=== PATIENT | male | born 1985 | race Caucasian/White ===

== ENCOUNTER 2017-02-23 09:28 | Observation (INO) | payer BC ==
[2017-02-23] MEDS ORDERED: Sodium Chloride 0.9% 1,000 ML IV ONE (09:51)
[2017-02-23] MEDS ORDERED: Ondansetron 4 MG/2 ML SDV IVPUSH ONE (09:51)
[2017-02-23 10:11] LABS: CHLORIDE,CL 96 mmol/L (98-115); SODIUM,NA 135 mmol/L (136-145)
[2017-02-23] MEDS ORDERED: Albuterol/Ipratropium 3.0-0.5 MG/3 ML Neb Soln NEB ONE (10:20)
--- NOTE | 2017-02-23 10:20 | EDM.PDOC ---
ED HPI GENERAL MEDICAL PROBLEM - General Chief Complaint: General Stated Complaint: vomiting Time Seen by Provider: 02/23/17 10:13 Source of Information: Reports: Patient History Limitations: Reports: No Limitations - History of Present Illness INITIAL COMMENTS - FREE TEXT/NARRATIVE: 31 YO WM presents to ER with 3 day history of productive cough, shortness of breath, subjective fever, body aches and dizziness. Pt reports he developed nausea/vomiting and profuse diarrhea over the last 3 days but symptoms started with URI like symptoms. Pt with PMH of depression/anxiety. Pt denies any history of pneumonia/bronchitis or asthma. Onset Date: 02/18/17 Duration: Day(s): (4) Location: Reports: Generalized Severity: Mild Improves with: Reports: Rest Worsens with: Reports: Movement Associated Symptoms: Reports: cough w sputum, Fever/Chills, Headaches, Loss of Appetite, Malaise, Nausea/Vomiting, Shortness of Breath, Weakness. Denies: Chest Pain, Diaphoresis, Rash, Seizure, Syncope Treatments [employer]: Reports: Acetaminophen - Related Data Allergies Allergy/AdvReac Type Severity Reaction Status Date / Time No Known Drug Allergies Allergy Cannot Verified 02/23/17 09:49 Remember Home Meds: Home Meds ALPRAZolam [Alprazolam] 0.5 mg PO TID PRN 04/04/16 [History] PARoxetine HCl [Paroxetine HCl] 20 mg PO DAILY 04/04/16 [History] Social & Family History - Family History Cardiac: Reports: Hypertension Oncologic: Reports: Bone, Brain, Renal - Tobacco Use Smoking Status *Q: Never Smoker Second Hand Smoke Exposure: Yes - Caffeine Use Caffeine Use: Reports: Soda - Alcohol Use Days Per Week of Alcohol Use: 5 Number of Drinks Per Day: 3 Total Drinks Per Week: 15 - Recreational Drug Use Recreational Drug Use: No ED ROS GENERAL - Review of Systems Review Of Systems: See Below Constitutional: Reports: Fever, Chills, Malaise, Weakness HEENT: Reports: Rhinitis Respiratory: Reports: Shortness of Breath, Wheezing, Cough, Sputum. Denies: Hemoptysis Cardiovascular: Reports: No Symptoms, Lightheadedness Endocrine: Reports: No Symptoms GI/Abdominal: Reports: No Symptoms : Reports: No Symptoms Musculoskeletal: Reports: No Symptoms Skin: Reports: No Symptoms Neurological: Reports: No Symptoms Psychiatric: Reports: No Symptoms Hematologic/Lymphatic: Reports: No Symptoms Immunologic: Reports: No Symptoms ED EXAM, GENERAL - Physical Exam Exam: See Below Exam Limited By: No Limitations General Appearance: Alert, WD/WN, No Apparent Distress Nose: Nasal Drainage, Clear Rhinorrhea Throat/Mouth: Normal Inspection, Normal Lips, Normal Teeth, Normal Gums, Normal Oropharynx, Normal Voice, No Airway Compromise Head: Atraumatic, Normocephalic Neck: Normal Inspection, Supple, Non-Tender, Full Range of Motion Respiratory/Chest: No Respiratory Distress, No Accessory Muscle Use, Chest Non- Tender, Wheezing Cardiovascular: Normal Peripheral Pulses, Regular Rate, Rhythm, No Edema, No Gallop, No JVD, No Murmur, No Rub GI/Abdominal: Normal Bowel Sounds, Soft, Non-Tender, No Organomegaly, No Distention, No Abnormal Bruit, No Mass Back Exam: Normal Inspection, Full Range of Motion, NT Extremities: Normal Inspection, Normal Range of Motion, Non-Tender, Normal Capillary Refill, No Pedal Edema Neurological: Alert, Oriented, CN II-XII Intact, Normal Cognition, Normal Gait, Normal Reflexes, No Motor/Sensory Deficits Psychiatric: Normal Affect, Normal Mood Skin Exam: Warm, Dry, Intact, Normal Color, No Rash Lymphatic: No Adenopathy EKG INTERPRETATION EKG Date: 02/23/17 Time: 10:42 Rhythm: NSR Rate (Beats/Min): 92 [place]: Normal P-Wave: Present QRS: Normal ST-T: Normal QT: Normal Comparison: NA - No Prior EKG Course - Vital Signs Last Recorded V/S: Last Vital Signs Temp 37.3 C 02/23/17 09:40 Pulse 106 H 02/23/17 10:45 Resp 13 02/23/17 10:45 BP 117/71 02/23/17 10:45 Pulse Ox 92 L 02/23/17 10:45 - Orders/Labs/Meds Orders: Active Orders 24 hr Category Date Time Status EKG Documentation Completion [RC] ASDIRECTED Care 02/23/17 10:33 Active RT Aerosol Therapy [RC] ASDIRECTED Care 02/23/17 10:21 Active Chest 2V [CR] Stat Exams 02/23/17 10:19 Taken EKG 12 Lead [EK] Routine Ther 02/23/17 10:33 Ordered Labs: Laboratory Tests 02/23/17 02/23/17 02/23/17 Range/Units 09:40 09:40 09:40 WBC 3.9 L (5.0-10.0) 10^3/uL RBC 5.29 (4.50-6.00) 10^6/uL Hgb 15.6 (13.0-17.0) g/dL Hct 47.3 (40.0-52.0) % MCV 89.4 (82.0-92.0) fL MCH 29.5 (27.0-31.0) pg MCHC 33.0 (32.0-36.0) g/dL RDW 11.6 (11.5-14.5) % Plt Count 149 L (150-300) 10^3/uL MPV 8.7 (7.4-10.4) fL Neut % (Auto) 48.6 L (50.0-70.0) % Lymph % (Auto) 36.9 (20.0-40.0) % [place] % (Auto) 13.2 H (2.0-8.0) % Eos % (Auto) 0.1 L (1.0-3.0) % Baso % (Auto) 1.2 H (0.0-1.0) % Neut # (Auto) 2.0 L (2.5-7.0) 10^3/uL Lymph # (Auto) 1.4 (1.0-4.0) 10^3/uL [place] # (Auto) 0.5 (0.1-0.8) 10^3/uL Eos # (Auto) 0.0 L (0.1-0.3) 10^3/uL Baso # (Auto) 0.0 (0.0-0.1) 10^3/uL Sodium 135 L (136-145) mmol/L Potassium 2.9 L (3.3-5.3) mmol/L Chloride 96 L (98-115) mmol/L Carbon Dioxide 25.1 (21.0-32.0) mmol/L BUN 11 (6-25) mg/dL Creatinine 0.95 (0.51-1.17) mg/dL Est Cr Clr Drug Dosing 105.33 mL/min Estimated GFR (MDRD) > 60 mL/min Glucose 105 (70-110) mg/dL Calcium 8.4 L (8.7-10.3) mg/dL Total Bilirubin 0.5 (0.2-1.0) mg/dL Direct Bilirubin 0.1 (0.0-0.2) mg/dL AST 32 (15-37) U/L ALT 41 (12-78) U/L Alkaline Phosphatase 61 (46-116) IU/L Total Protein 7.6 (6.4-8.2) g/dL Albumin 3.75 (3.00-4.80) g/dL Lipase 122 (73-393) U/L Meds: Medications Discontinued Medications Generic Name Dose Route Start Last Admin Trade Name Freq PRN Reason Stop Dose Admin Albuterol/Ipratropium 3 ml 02/23/17 10:20 02/23/17 10:35 Duoneb 3.0-0.5 Mg/3 Ml NEB 02/23/17 10:21 3 ml ONETIME ONE Administration Sodium Chloride 1,000 mls @ 999 mls/hr 02/23/17 09:51 02/23/17 09:45 Normal Saline IV 02/23/17 10:51 999 mls/hr .BOLUS ONE Administration Ondansetron HCl 4 mg 02/23/17 09:51 02/23/17 09:56 Zofran IVPUSH 02/23/17 09:52 4 mg ONETIME ONE Administration - Radiology Interpretation Free Text/Narrative:: CXR- NAD Departure - Departure Time of Disposition: 11:16 Disposition: Refer to Observation Condition: Good Clinical Impression: Hypokalemia, Hyponatremia, Dehydration Upper respiratory infection Qualifiers: URI type: unspecified viral URI Qualified Code(s): J06.9 - Acute upper respiratory infection, unspecified; B97.89 - Other viral agents as the cause of diseases classified elsewhere; B97.89 - Other viral agents as the cause of diseases classified elsewhere - Discharge Information Referrals: PCP,None [Primary Care Provider] - Forms: ED Department Discharge - My Orders Last 24 Hours: My Active Orders 02/23/17 10:19 Chest 2V [CR] Stat 02/23/17 10:21 RT Aerosol Therapy [RC] ASDIRECTED 02/23/17 10:33 EKG Documentation Completion [RC] ASDIRECTED EKG 12 Lead [EK] Routine - Assessment/Plan Last 24 Hours: My Active Orders 02/23/17 10:19 Chest 2V [CR] Stat 02/23/17 10:21 RT Aerosol Therapy [RC] ASDIRECTED 02/23/17 10:33 EKG Documentation Completion [RC] ASDIRECTED EKG 12 Lead [EK] Routine Assessment:: 1. dehydration 2. hypokalemia 3. hyponatremia 4. bronchospasm Plan: 1. fluid hydration 2. zofran for vomiting 3. replace potassium 4. duoneb tx Q4 5. supportive care 6. 23 hour obs to Mildred Segal
[2017-02-23] MEDS ORDERED: Albuterol/Ipratropium 3.0-0.5 MG/3 ML Neb Soln NEB PRN (11:21)
[2017-02-23] MEDS ORDERED: Ondansetron 4 MG/2 ML SDV IV PRN (11:21)
[2017-02-23] MEDS: Sodium Chloride 0.9% with KCl 1,000 ML IV SCH ×2 (12:05→20:05)
[2017-02-23] MEDS ORDERED: Menthol 7.6 MG Sugar Free Lozenge PO PRN (12:21)
[2017-02-23] MEDS: ALPRAZolam 0.25 MG Tab PO PRN (18:50)
[2017-02-23] MEDS ORDERED: PARoxetine 20 MG Tab PO SCH (21:00)
[2017-02-24] MEDS: ALPRAZolam 0.25 MG Tab PO PRN (00:44)
[2017-02-24] MEDS: Sodium Chloride 0.9% with KCl 1,000 ML IV SCH (04:07)
[2017-02-24 06:22] VITALS: BP 117/76
[2017-02-24 07:39] LABS: CHLORIDE,CL 103 mmol/L (98-115); SODIUM,NA 141 mmol/L (136-145)
--- NOTE | 2017-02-24 08:39 | PCM.DCSUM1 ---
Discharge Summary - Hospital Course Free Text/Narrative:: Kike is being discharged from an observation stay from 02/23/17 - 02/24/17 for dehydration, hypokalemia, hyponatremia seconday to gastroenteritis. He had to miss work on 02/19 but symptoms persisted prompting ER evaluation. He was noted to have a potassium of 2.9 and sodium of 135. He had been having diarrhea and vomiting. He was given IVF's with potassium replacement. At the time of discharge he states he feels "great" and is ready to go home. He was negative for influenza as well as having a negative CXR. WBC not elevated although he does have a slight cough. He is discharged to home with no medication changes. He states his diarrhea has improved significantly and he has not had vomiting. He "ate a good breakfast" this morning. - Discharge Data Discharge Date: 02/24/17 Discharge Disposition: Home, Self-Care 01 Condition: Good - Discharge Diagnosis/Problem(s) (1) Gastroenteritis SNOMED Code(s): 40656271 ICD Code: K52.9 - NONINFECTIVE GASTROENTERITIS AND COLITIS, UNSPECIFIED Status: Acute Current Visit: Yes (2) Dehydration SNOMED Code(s): 38150541 ICD Code: E86.0 - DEHYDRATION Status: Acute Current Visit: Yes (3) Hypokalemia SNOMED Code(s): 44532691 ICD Code: E87.6 - HYPOKALEMIA Status: Acute Current Visit: Yes (4) Hyponatremia SNOMED Code(s): 83708015 ICD Code: E87.1 - HYPO-OSMOLALITY AND HYPONATREMIA Status: Acute Current Visit: Yes - Patient Instructions Diet: Regular Diet as Tolerated Activity: As Tolerated Notify Provider of: Nausea and/or Vomiting - Discharge Plan Home Medications: Home Meds ALPRAZolam [Alprazolam] 0.5 mg PO TID PRN 04/04/16 [History] PARoxetine HCl [Paroxetine HCl] 20 mg PO BEDTIME 04/04/16 [History] - Discharge Summary/Plan Comment DC Time >30 min.: No - General Info Date of Service: 02/24/17 - Review of Systems Systems Review Comment: 10 point ROS obtained. All pertinent positives in HPI, all other systems are negative. - Patient Data Vitals - Most Recent: Last Vital Signs Temp 98.2 F 02/24/17 06:21 Pulse 81 12/27/17 06:21 Resp 18 02/24/17 06:21 BP 117/76 02/24/17 06:21 Pulse Ox 94 L 02/24/17 06:21 Weight - Most Recent: 240 lb 1.6 oz I&O - Last 24 hours: Intake & Output 02/23/17 02/24/17 02/24/17 22:59 06:59 14:59 Intake Total 1498 1624 Balance 1498 1624 Lab Results - Last 24 hrs: Laboratory Results - last 24 hr 02/24/17 02/24/17 02/24/17 Range/Units 07:10 07:10 07:10 WBC 4.1 L (5.0-10.0) 10^3/uL RBC 4.74 (4.50-6.00) 10^6/uL Hgb 14.1 (13.0-17.0) g/dL Hct 43.1 (40.0-52.0) % MCV 90.9 (82.0-92.0) fL MCH 29.7 (27.0-31.0) pg MCHC 32.6 (32.0-36.0) g/dL RDW 11.8 (11.5-14.5) % Plt Count 157 (150-300) 10^3/uL MPV 8.0 (7.4-10.4) fL Neut % (Auto) 46.5 L (50.0-70.0) % Lymph % (Auto) 37.0 (20.0-40.0) % [place] % (Auto) 15.6 H (2.0-8.0) % Eos % (Auto) 0.5 L (1.0-3.0) % Baso % (Auto) 0.4 (0.0-1.0) % Neut # (Auto) 2.0 L (2.5-7.0) 10^3/uL Lymph # (Auto) 1.5 (1.0-4.0) 10^3/uL [place] # (Auto) 0.6 (0.1-0.8) 10^3/uL Eos # (Auto) 0.0 L (0.1-0.3) 10^3/uL Baso # (Auto) 0.0 (0.0-0.1) 10^3/uL Sodium 141 (136-145) mmol/L Potassium 4.0 (3.3-5.3) mmol/L Chloride 103 (98-115) mmol/L Carbon Dioxide 25.2 (21.0-32.0) mmol/L BUN 6 (6-25) mg/dL Creatinine 0.81 (0.51-1.17) mg/dL Est Cr Clr Drug Dosing 123.54 mL/min Estimated GFR (MDRD) > 60 mL/min Glucose 111 H (70-110) mg/dL Calcium 7.8 L (8.7-10.3) mg/dL Magnesium 2.4 (1.8-2.4) mg/dL Med Orders - Current: Current Medications Albuterol/Ipratropium (Duoneb 3.0-0.5 Mg/3 Ml) 3 ml NEB Q6HRRT PRN PRN Reason: Shortness Of Breath/wheezing Alprazolam (Xanax) 0.5 mg PO TID PRN PRN Reason: Anxiety Last Admin: 02/24/17 00:44 Dose: 0.5 mg Potassium Chloride/Sodium Chloride (Normal Saline With 40 Meq Kcl) 1,000 mls @ 125 mls/hr IV ASDIRECTED MARIAMA Last Admin: 02/24/17 04:07 Dose: 125 mls/hr Menthol ([place] Sugar Free) 1 mae PO ASDIRECTED PRN PRN Reason: Cough Last Admin: 02/23/17 13:49 Dose: 1 mae Ondansetron HCl (Zofran) 4 mg IV Q6H PRN PRN Reason: Nausea/Vomiting Paroxetine HCl (Paxil) 20 mg PO BEDTIME MARIAMA Last Admin: 02/23/17 20:04 Dose: 20 mg Discontinued Medications Albuterol/Ipratropium (Duoneb 3.0-0.5 Mg/3 Ml) 3 ml NEB ONETIME ONE Stop: 02/23/17 10:21 Last Admin: 02/23/17 10:35 Dose: 3 ml Sodium Chloride (Normal Saline) 1,000 mls @ 999 mls/hr IV .BOLUS ONE Stop: 02/23/17 10:51 Last Admin: 02/23/17 09:45 Dose: 999 mls/hr Ondansetron HCl (Zofran) 4 mg IVPUSH ONETIME ONE Stop: 02/23/17 09:52 Last Admin: 02/23/17 09:56 Dose: 4 mg - Exam General: Reports: Alert, Oriented, Cooperative, No Acute Distress HEENT: Reports: Other (TM's normal. Has small clear effusion in the left ear.) Lungs: Reports: Clear to Auscultation, Normal Respiratory Effort Cardiovascular: Reports: Regular Rate, Regular Rhythm, No Murmurs GI/Abdominal Exam: Normal Bowel Sounds *Q Meaningful Use (DIS) - VTE *Q VTE Criteria *Q: - Stroke *Q Stroke Criteria *Q: - AMI *Q AMI Criteria *Q:
== END 2017-02-24 09:30 | disposition home or self-care (01) ==
LOC: KA.ED 09:28 → KA.MS 11:20
PROVIDERS: ADMIT Physician Assistant Medical; ATTEND Internal Medicine
DX: K52.9 Noninfective gastroenteritis and colitis, unspecified (principal); E87.6 Hypokalemia; E86.0 Dehydration; E87.1 Hypo-osmolality and hyponatremia; F32.9 Major depressive disorder, single episode, unspecified; F41.9 Anxiety disorder, unspecified; J06.9 Acute upper respiratory infection, unspecified; B97.89 Other viral agents as the cause of diseases classified elsewhere
CPT/HCPCS: 36415; 71020; 80048; 80076; 83690; 83735; 85025; 87804; 93005; 94640; 96361; 96374; 99285; A9270; G0378; J2405; J3480; J7030

== ENCOUNTER 2021-02-02 11:43 | Emergency (ER) | payer BC ==
[2021-02-02] MEDS ORDERED: Sodium Chloride 0.9% 1,000 ML IV ONE (12:20)
[2021-02-02] MEDS ORDERED: Ondansetron 4 MG/2 ML SDV IVPUSH ONE (12:21)
[2021-02-02] MEDS ORDERED: Sodium Chloride 0.9% 10 ML Syringe FLUSH PRN (12:47)
[2021-02-02 12:55] VITALS: BP 140/85; PULSE 96
--- NOTE | 2021-02-02 12:56 | EDM.PDOC ---
ED HPI GENERAL MEDICAL PROBLEM - General Chief Complaint: General Stated Complaint: COVID, DIZZY, WEAK, diarrhea Time Seen by Provider: 02/02/21 12:00 Source of Information: Reports: Patient, RN History Limitations: Reports: No Limitations - History of Present Illness INITIAL COMMENTS - FREE TEXT/NARRATIVE: 35-year-old male presents to the emergency room with complaints of fatigue weakness, abdominal discomfort, nausea, and diarrhea. He has been feeling under weather since this past Wednesday. He had a Covid positive test this past Wednesday. His and children also have tested positive for COVID this week. They have been isolating at home. Rest of the family seems to be doing well. He is not have much for appetite but has been trying to keep up with his hydration. He has been having diarrhea for the past 5 days. He has noticed a little bit abdominal discomfort. He is not experiencing any significant respiratory distress. He does notice a little bit of intermittent cough. He is not experiencing tachypnea or cyanosis. Denies fever or chills. Onset: Gradual Onset Date: 01/27/21 Duration: Day(s):, Constant Location: Reports: Abdomen, Generalized Severity: Moderate Improves with: Reports: Rest Worsens with: Reports: None Context: Reports: Sick Contact (Over the positive test on Wednesday) Associated Symptoms: Reports: Loss of Appetite, Nausea/Vomiting, Weakness. Denies: Cough, Fever/Chills, Shortness of Breath - Related Data Allergies Allergy/AdvReac Type Severity Reaction Status Date / Time No Known Drug Allergies Allergy Cannot Verified 02/02/21 11:52 Remember Home Meds: Home Meds ALPRAZolam [Alprazolam] 1 mg PO DAILY PRN 02/02/21 [History] Escitalopram Oxalate [Lexapro] 20 mg PO BEDTIME 02/02/21 [History] Past Medical History Psychiatric History: Reports: Anxiety, Depression - Infectious Disease History Infectious Disease History: Reports: Chicken Pox Social & Family History - Family History Cardiac: Reports: Hypertension Oncologic: Reports: Bone, Brain, Renal - Tobacco Use Tobacco Use Status *Q: Never Tobacco User - Caffeine Use Caffeine Use: Reports: Soda - Alcohol Use Days Per Week of Alcohol Use: 3 Number of Drinks Per Day: 6 Total Drinks Per Week: 18 - Recreational Drug Use Recreational Drug Use: No ED ROS GENERAL - Review of Systems Review Of Systems: See Below Constitutional: Reports: Weakness, Fatigue, Decreased Appetite. Denies: Fever, Chills HEENT: Reports: No Symptoms Respiratory: Reports: Cough. Denies: Shortness of Breath, Wheezing Cardiovascular: Reports: No Symptoms Endocrine: Reports: No Symptoms GI/Abdominal: Reports: Abdominal Pain, Diarrhea, Nausea. Denies: Vomiting : Reports: No Symptoms Musculoskeletal: Reports: Muscle Stiffness (Aches) Skin: Denies: Cyanosis, Diaphoresis Neurological: Reports: No Symptoms Psychiatric: Reports: No Symptoms Hematologic/Lymphatic: Reports: No Symptoms Immunologic: Reports: No Symptoms ED EXAM, GENERAL - Physical Exam Exam: See Below Exam Limited By: No Limitations General Appearance: Alert, WD/WN, No Apparent Distress Eye Exam: Bilateral Eye: EOMI, PERRL (Borders are equal and round) Ears: Hearing Grossly Normal Nose: Normal Inspection Throat/Mouth: Normal Voice, No Airway Compromise Head: Atraumatic, Normocephalic Neck: Normal Inspection, Supple, Non-Tender, Full Range of Motion. No: Lymphadenopathy (L), Lymphadenopathy (R) Respiratory/Chest: No Respiratory Distress, Lungs Clear, Normal Breath Sounds, No Accessory Muscle Use, Chest Non-Tender Cardiovascular: Regular Rate, Rhythm, No Murmur Peripheral Pulses: 2+: Carotid (L), Carotid (R) GI/Abdominal: Normal Bowel Sounds, Soft, Non-Tender, No Mass. No: Distended, Guarding, Rigid, Rebound Back Exam: Normal Inspection, Full Range of Motion Extremities: Normal Inspection, Normal Range of Motion, Normal Capillary Refill Neurological: Alert, Oriented, No Motor/Sensory Deficits Psychiatric: Normal Affect, Normal Mood Skin Exam: Warm, Dry, Intact, Normal Color, No Rash Lymphatic: No Adenopathy Course - Vital Signs Last Recorded V/S: Last Vital Signs Temp 98.2 F 02/02/21 11:48 Pulse 96 02/02/21 12:55 Resp 94 H 02/02/21 12:55 BP 140/85 02/02/21 12:55 Pulse Ox 96 02/02/21 12:15 - Orders/Labs/Meds Orders: Active Orders 24 hr Category Date Time Status Peripheral IV Care [RC] . DIRECTED Care 02/02/21 12:47 Active Sodium Chloride 0.9% [Saline Flush] Med 02/02/21 12:47 Active 10 ml FLUSH Q8HR PRN Peripheral IV Insertion Adult [OM.PC] Routine Oth 02/02/21 12:47 Ordered Medication Orders Sodium Chloride (Sodium Chloride 0.9% 10 Ml Syringe) 10 ml FLUSH Q8HR PRN PRN Reason: keep vein open Last Admin: 02/02/21 12:49 Dose: 10 ml Documented by: MINE Labs: Laboratory Tests 02/02/21 02/02/21 Range/Units 12:24 12:25 WBC 5.27 (5.00-10.00) 10^3/uL RBC 5.56 (4.50-6.00) 10^6/uL Hgb 16.5 (13.0-17.0) g/dL Hct 47.0 (40.0-52.0) % MCV 84.5 D (82.0-92.0) fL MCH 29.7 (27.0-31.0) pg MCHC 35.1 (32.0-36.0) g/dL RDW 11.7 (11.5-14.5) % Plt Count 159 (150-400) 10^3/uL MPV 9.9 (7.4-10.4) fL Immature Gran % (Auto) 0.2 (0.0-5.0) % Neut % (Auto) 66.8 (50.0-70.0) % Lymph % (Auto) 23.1 (20.0-40.0) % [place] % (Auto) 9.7 H (2.0-8.0) % Eos % (Auto) 0.0 L (1.0-3.0) % Baso % (Auto) 0.2 (0.0-1.0) % Neut # (Auto) 3.52 (2.50-7.00) 10^3/uL Lymph # (Auto) 1.22 (1.00-4.00) 10^3/uL [place] # (Auto) 0.51 (0.10-0.80) 10^3/uL Eos # (Auto) 0.00 L (0.10-0.30) 10^3/uL Baso # (Auto) 0.01 (0.00-0.10) 10^3/uL Immature Gran # (Auto) 0.01 (0.00-0.50) 10^3/uL Sodium 135 L (136-145) mmol/L Potassium 3.2 L (3.5-5.1) mmol/L Chloride 97 L (98-107) mmol/L Carbon Dioxide 23.8 (21.0-32.0) mmol/L Anion Gap 17.4 H (5-15) mmol/L BUN 10 (7-18) mg/dL Creatinine 0.88 (0.51-1.17) mg/dL Est Cr Clr Drug Dosing 109.54 mL/min Estimated GFR (MDRD) > 60 mL/min Glucose 122 (70-140) mg/dL Calcium 8.4 L (8.7-10.3) mg/dL Total Bilirubin 0.5 (0.2-1.0) mg/dL AST 26 (15-37) U/L ALT 58 (14-63) U/L Alkaline Phosphatase 64 (46-116) U/L Total Protein 7.8 (6.4-8.2) g/dL Albumin 3.90 (3.40-5.00) g/dL Meds: Medications Generic Name Dose Route Start Last Admin Trade Name Freq PRN Reason Stop Dose Admin Sodium Chloride 10 ml 02/02/21 12:47 02/02/21 12:49 Sodium Chloride 0.9% 10 Ml Syringe FLUSH 10 ml Q8HR PRN Administration keep vein open Discontinued Medications Generic Name Dose Route Start Last Admin Trade Name Freq PRN Reason Stop Dose Admin Sodium Chloride 1,000 mls @ 1,000 mls/hr 02/02/21 12:20 02/02/21 12:43 Normal Saline IV 02/02/21 13:19 1,000 mls/hr .BOLUS ONE Administration Loperamide HCl 8 mg 02/02/21 13:30 Loperamide 2 Mg Cap PO 02/02/21 13:31 ONETIME ONE Ondansetron HCl 4 mg 02/02/21 12:21 02/02/21 12:45 Ondansetron 4 Mg/2 Ml Sdv IVPUSH 02/02/21 12:22 4 mg ONETIME ONE Administration Ondansetron HCl 12 mg 02/02/21 13:31 Ondansetron 4 Mg Tab.Dis PO 02/02/21 13:32 ONETIME ONE - Radiology Interpretation Free Text/Narrative:: X-ray PA 1 view Indication: Covid Comparison: February 23, 2017 Discussion: Cardiomedial silhouette is normal in size and contour. Patchy pulmonary infiltrates bilaterally. No pneumothorax or pleural effusion Impression: Patchy pulmonary infiltrates bilaterally appear. - Re-Assessments/Exams Free Text/Narrative Re-Assessment/Exam: 02/02/21 13:54 Discussed lab work and findings with the patient. He feels much better with Zofran 4 mg IV and 1 L of normal saline fluid replacement. Discussed continuing with electrolyte replacement and fluids such as Gatorade and Pedialyte. Departure - Departure Time of Disposition: 13:55 Disposition: Home, Self-Care 01 Condition: Good Clinical Impression: COVID-19, Diarrhea due to COVID-19 - Discharge Information Instructions: Viral Gastroenteritis, Adult, [id number], 10 Things You Can Do to Manage Your COVID-19 Symptoms at Home - [facility] (09/13/2020) Referrals: Radha Montez MD [Primary Care Provider] - Forms: ED Department Discharge Care Plan Goals: 1. Continue to push oral fluids 2. Rest, continue with isolation 10 days once symptoms improve. Continue with symptomatic relief of diarrhea, nausea with Zofran ODT and Imodium A-D. 3. Return to the emergency room if respiratory symptoms become prominent with difficulty breathing or increased shortness of breath or progressively worsening of your current symptoms. 4. You have a mild electrolyte disturbance likely caused from your diarrhea and dehydration. Encourage eating a banana daily and or supplementing with Gatorade or Pedialyte. Sepsis Event Note (ED) - Evaluation Sepsis Screening Result: No Definite Risk - Focused Exam Vital Signs: Vital Signs Temp Pulse Resp BP Pulse Ox 02/02/21 12:55 96 94 H 140/85 02/02/21 12:30 94 94 H 135/81 02/02/21 12:15 98 127/81 96 02/02/21 12:00 96 137/83 93 L 02/02/21 11:48 98.2 F 95 18 135/79 93 L 02/02/21 11:45 93 135/79 92 L - My Orders Last 24 Hours: My Active Orders 02/02/21 12:47 Peripheral IV Care [RC] . DIRECTED Sodium Chloride 0.9% [Saline Flush] 10 ml FLUSH Q8HR PRN Peripheral IV Insertion Adult [OM.PC] Routine - Assessment/Plan Last 24 Hours: My Active Orders 02/02/21 12:47 Peripheral IV Care [RC] . DIRECTED Sodium Chloride 0.9% [Saline Flush] 10 ml FLUSH Q8HR PRN Peripheral IV Insertion Adult [OM.PC] Routine Assessment:: Covid positive Diarrhea Plan: 1. IV fluid replacement normal saline 1 L given 2. Zofran 4 mg IV for nausea 3. Imodium AD 2 p.o. for diarrhea 4. Continue with oral hydration, rest, symptomatic relief with Zofran ODT, Imodium. 5. Continue with isolation for 10 days after symptoms are improved. 6. May return to the emergency room if respiratory complaints become prominent or symptoms are worsening.
[2021-02-02 13:06] LABS: ANION GAP 17.4 mmol/L (5-15); CHLORIDE,CL 97 mmol/L (98-107); SODIUM,NA 135 mmol/L (136-145)
[2021-02-02] MEDS ORDERED: Loperamide 2 MG Cap PO ONE (13:30)
[2021-02-02] MEDS ORDERED: Ondansetron 4 MG Tab.DIS PO ONE (13:31)
--- NOTE | 2021-02-02 13:43 | CR ---
[id number] RAD/RAD Chest PA or AP 1V EXAM: RAD Chest PA or AP 1V INDICATION: COVID. COMPARISON: February 23, 2017. DISCUSSION: Cardiomediastinal silhouette is normal in size and contour. Patchy pulmonary infiltrates bilaterally. No pneumothorax or pleural effusion IMPRESSION: Patchy pulmonary infiltrates bilaterally appear Jacoby Cardenas DO 02/02/21 1342 Thank you for allowing us to participate in the care of your patient.
== END 2021-02-02 14:00 | disposition home or self-care (01) ==
LOC: KA.ED 11:43
DX: U07.1 COVID-19 (principal); A08.39 Other viral enteritis; Z79.899 Other long term (current) drug therapy
CPT/HCPCS: 36415; 71045; 80053; 85025; 96374; 99283; 99285-25; J2405; J7030

== ENCOUNTER 2021-02-04 17:54 | Observation (INO) | payer BC ==
[2021-02-04] MEDS ORDERED: Sodium Chloride 0.9% 10 ML Syringe FLUSH PRN (17:58)
[2021-02-04] MEDS ORDERED: Sodium Chloride 0.9% 1,000 ML IV ONE (17:59)
[2021-02-04] MEDS ORDERED: Ondansetron 4 MG/2 ML SDV IVPUSH ONE (18:00)
--- NOTE | 2021-02-04 18:00 | EDM.PDOC ---
ED HPI GENERAL MEDICAL PROBLEM - General Chief Complaint: Gastrointestinal Problem Stated Complaint: STILL DIZZY, WEAK Time Seen by Provider: 02/04/21 17:55 Source of Information: Reports: Patient History Limitations: Reports: No Limitations - History of Present Illness INITIAL COMMENTS - FREE TEXT/NARRATIVE: Kike, 35-year-old male, presents per pedis to the emergency department for evaluation of ongoing Covid symptoms stating he is not better, getting worse. Unvaccinated with diagnosis in [place] per [facility] department confirmation. Was seen in the emergency department here in [place] on the Fifth treated with IV fluids to which all labs were reasonable. States that he is now experiencing "passing out at home and feels unsafe requiring admission". Diarrhea resolved sometime Wednesday night Wednesday morning after he was placed on Imodium after his emergency department visit. He has had no major respiratory issues with some cramping to the abdomen and increased nausea. Has had limited intake. Onset: Unknown/Unsure Onset Date: 01/27/21 Duration: Day(s):, Getting Worse, Intermittent Location: Reports: Abdomen Quality: Reports: Ache Severity: Moderate Improves with: Reports: None Worsens with: Reports: Movement Context: Reports: Sick Contact - Related Data Allergies Allergy/AdvReac Type Severity Reaction Status Date / Time No Known Drug Allergies Allergy Cannot Verified 02/04/21 18:22 Remember Home Meds: Home Meds ALPRAZolam [Alprazolam] 1 mg PO DAILY PRN 02/02/21 [History] Escitalopram Oxalate [Lexapro] 20 mg PO BEDTIME 02/02/21 [History] Past Medical History Psychiatric History: Reports: Anxiety, Depression - Infectious Disease History Infectious Disease History: Reports: Chicken Pox, Other (See Below) (COVID-19 positive) Social & Family History - Family History Family Medical History: No Pertinent Family History Cardiac: Reports: Hypertension Oncologic: Reports: Bone, Brain, Renal - Caffeine Use Caffeine Use: Reports: Soda ED ROS GENERAL - Review of Systems Review Of Systems: Comprehensive ROS is negative, except as noted in HPI. ED EXAM, GENERAL - Physical Exam Exam: See Below Free Text/Narrative:: Alert, oriented, appearing ill. There is no cyanosis nor pallor. HEENT is negative discharge or deformity. Neck is soft supple no lymphadenopathy no JVD or bruit auscultated. Thorax is overall clear mildly diminished at the bases with no wheezes nor crackles. Oxygen saturation is maintained 90 to 92% since his arrival. There is no pain with inspiration or palpation of the chest. Positioning does not induce shortness of breath nor chest discomfort. Cardiac is regular heart rate is been in the low 90s and regular, I do not appreciate murmur. Abdomen is soft I do not appreciate any gross abnormalities to palpation. Bowel sounds are present. There is no edema to the lower extremity with skin warm and dry dorsalis pedis present bilateral. Course - Vital Signs Last Recorded V/S: Last Vital Signs Temp 98.6 F 02/04/21 18:25 Pulse 93 02/04/21 18:32 Resp 18 02/04/21 18:32 BP 153/95 H 02/04/21 18:32 Pulse Ox 95 02/04/21 18:32 - Orders/Labs/Meds Orders: Active Orders 24 hr Category Date Time Status Peripheral IV Care [RC] . DIRECTED Care 02/04/21 17:59 Active NS + KCl 20mEq/L [Normal Saline with 20 mEq KCl] 1,000 Med 02/04/21 19:15 Ordered ml IV ASDIRECTED Sodium Chloride 0.9% [Saline Flush] Med 02/04/21 17:58 Active 10 ml FLUSH Q8HR PRN Peripheral IV Insertion Adult [OM.PC] Stat Oth 02/04/21 17:58 Ordered Medication Orders Acetaminophen (Acetaminophen 325 Mg Tab) 650 mg PO Q4H PRN PRN Reason: Pain (Mild 1-3)/fever Potassium Chloride/Sodium Chloride (Normal Saline With 20 Meq Kcl) 1,000 mls @ 200 mls/hr IV ASDIRECTED [facility] Stop: 02/06/21 00:14 Non-Formulary Medication (Escitalopram Oxalate [Lexapro]) 20 mg PO BEDTIME MARI[facility] Non-Formulary Medication (Alprazolam [Alprazolam]) 1 mg PO DAILY PRN PRN Reason: Anxiety Ondansetron HCl (Ondansetron 4 Mg/2 Ml Sdv) 8 mg IV Q6H PRN PRN Reason: Nausea/Vomiting Sodium Chloride (Sodium Chloride 0.9% 10 Ml Syringe) 10 ml FLUSH Q8HR PRN PRN Reason: keep vein open Labs: Laboratory Tests 12/07/21 12/07/21 12/07/21 Range/Units 18:13 18:13 18:13 WBC 6.20 (5.00-10.00) 10^3/uL RBC 5.08 (4.50-6.00) 10^6/uL Hgb 15.2 (13.0-17.0) g/dL Hct 42.8 (40.0-52.0) % MCV 84.3 (82.0-92.0) fL MCH 29.9 (27.0-31.0) pg MCHC 35.5 (32.0-36.0) g/dL RDW 11.7 (11.5-14.5) % Plt Count 193 (150-400) 10^3/uL MPV 10.0 (7.4-10.4) fL Immature Gran % (Auto) 0.2 (0.0-5.0) % Neut % (Auto) 70.6 H (50.0-70.0) % Lymph % (Auto) 22.9 (20.0-40.0) % [place] % (Auto) 6.1 (2.0-8.0) % Eos % (Auto) 0.0 L (1.0-3.0) % Baso % (Auto) 0.2 (0.0-1.0) % Neut # (Auto) 4.38 (2.50-7.00) 10^3/uL Lymph # (Auto) 1.42 (1.00-4.00) 10^3/uL [place] # (Auto) 0.38 (0.10-0.80) 10^3/uL Eos # (Auto) 0.00 L (0.10-0.30) 10^3/uL Baso # (Auto) 0.01 (0.00-0.10) 10^3/uL Immature Gran # (Auto) 0.01 (0.00-0.50) 10^3/uL D-Dimer, Quantitative 156 (<400) ng/mL Sodium 135 L (136-145) mmol/L Potassium 3.0 L (3.5-5.1) mmol/L Chloride 96 L (98-107) mmol/L Carbon Dioxide 26.6 (21.0-32.0) mmol/L Anion Gap 15.4 H (5-15) mmol/L BUN 6 L (7-18) mg/dL Creatinine 0.89 (0.51-1.17) mg/dL Est Cr Clr Drug Dosing 108.31 mL/min Estimated GFR (MDRD) > 60 mL/min Glucose 107 (70-140) mg/dL Lactic Acid (0.4-2.0) mmol/L Calcium 8.2 L (8.7-10.3) mg/dL Total Bilirubin 0.6 (0.2-1.0) mg/dL AST 24 (15-37) U/L ALT 30 (14-63) U/L Alkaline Phosphatase 50 (46-116) U/L C-Reactive Protein 11.9 H (0.0-0.9) mg/dL Total Protein 7.4 (6.4-8.2) g/dL Albumin 3.42 (3.40-5.00) g/dL 02/04/21 Range/Units 18:13 WBC (5.00-10.00) 10^3/uL RBC (4.50-6.00) 10^6/uL Hgb (13.0-17.0) g/dL Hct (40.0-52.0) % MCV (82.0-92.0) fL MCH (27.0-31.0) pg MCHC (32.0-36.0) g/dL RDW (11.5-14.5) % Plt Count (150-400) 10^3/uL MPV (7.4-10.4) fL Immature Gran % (Auto) (0.0-5.0) % Neut % (Auto) (50.0-70.0) % Lymph % (Auto) (20.0-40.0) % [place] % (Auto) (2.0-8.0) % Eos % (Auto) (1.0-3.0) % Baso % (Auto) (0.0-1.0) % Neut # (Auto) (2.50-7.00) 10^3/uL Lymph # (Auto) (1.00-4.00) 10^3/uL [place] # (Auto) (0.10-0.80) 10^3/uL Eos # (Auto) (0.10-0.30) 10^3/uL Baso # (Auto) (0.00-0.10) 10^3/uL Immature Gran # (Auto) (0.00-0.50) 10^3/uL D-Dimer, Quantitative (<400) ng/mL Sodium (136-145) mmol/L Potassium (3.5-5.1) mmol/L Chloride (98-107) mmol/L Carbon Dioxide (21.0-32.0) mmol/L Anion Gap (5-15) mmol/L BUN (7-18) mg/dL Creatinine (0.51-1.17) mg/dL Est Cr Clr Drug Dosing mL/min Estimated GFR (MDRD) mL/min Glucose (70-140) mg/dL Lactic Acid 1.2 (0.4-2.0) mmol/L Calcium (8.7-10.3) mg/dL Total Bilirubin (0.2-1.0) mg/dL AST (15-37) U/L ALT (14-63) U/L Alkaline Phosphatase (46-116) U/L C-Reactive Protein (0.0-0.9) mg/dL Total Protein (6.4-8.2) g/dL Albumin (3.40-5.00) g/dL Meds: Medications Generic Name Dose Route Start Last Admin Trade Name Freq PRN Reason Stop Dose Admin Acetaminophen 650 mg 02/04/21 19:12 Acetaminophen 325 Mg Tab PO Q4H PRN Pain (Mild 1-3)/fever Potassium Chloride/Sodium Chloride 1,000 mls @ 200 mls/hr 02/04/21 19:15 Normal Saline With 20 Meq Kcl IV 02/06/21 00:14 ASDIRECTED [facility]IAMA Non-Formulary Medication 20 mg 02/04/21 21:00 Escitalopram Oxalate [Lexapro] PO BEDTIME [facility] Non-Formulary Medication 1 mg 02/04/21 19:15 Alprazolam [Alprazolam] PO DAILY PRN Anxiety Ondansetron HCl 8 mg 02/04/21 19:12 Ondansetron 4 Mg/2 Ml Sdv IV Q6H PRN Nausea/Vomiting Sodium Chloride 10 ml 02/04/21 17:58 Sodium Chloride 0.9% 10 Ml Syringe FLUSH Q8HR PRN keep vein open Discontinued Medications Generic Name Dose Route Start Last Admin Trade Name Freq PRN Reason Stop Dose Admin Sodium Chloride 1,000 mls @ 999 mls/hr 02/04/21 17:59 02/04/21 18:05 Normal Saline IV 02/04/21 18:59 999 mls/hr .BOLUS ONE Administration Sodium Chloride Confirm 02/04/21 18:02 02/04/21 18:22 Normal Saline Administered 02/04/21 18:03 Not Given Dose 1,000 mls @ as directed .ROUTE .STK-MED ONE Ondansetron HCl 8 mg 02/04/21 18:00 02/04/21 18:07 Ondansetron 4 Mg/2 Ml Sdv IVPUSH 02/04/21 18:01 8 mg ONETIME ONE Administration Ondansetron HCl Confirm 02/04/21 18:01 02/04/21 18:23 Ondansetron 4 Mg/2 Ml Sdv Administered 02/04/21 18:02 Not Given Dose 8 mg .ROUTE .STK-MED ONE Departure - Departure Time of Disposition: 19:10 Disposition: Refer to Observation Condition: Fair Clinical Impression: Electrolyte imbalance, Pneumonia due to COVID-19 virus, Syncope and collapse - Discharge Information *PRESCRIPTION DRUG MONITORING PROGRAM REVIEWED*: Not Applicable *COPY OF PRESCRIPTION DRUG MONITORING REPORT IN PATIENT YESICA: Not Applicable Sepsis Event Note (ED) - Focused Exam Vital Signs: Vital Signs Temp Pulse Resp BP Pulse Ox 02/04/21 18:32 93 18 153/95 H 95 02/04/21 18:25 98.6 F 103 H 20 139/91 H 93 L ED Communication - ED Communication Date/Time Date: 02/04/21 Time Called: 19:00 - Discussed Case With (1) Discussed Case With (1): Admitting Provider Person/s Notified (1): Radha Montez - Problem List & Annotations (1) COVID-19 SNOMED Code(s): 248732802 Code(s): U07.1 - COVID-19 Status: Acute Priority: High Current Visit: No (2) Syncope and collapse SNOMED Code(s): 122915008 Code(s): R55 - SYNCOPE AND COLLAPSE Status: Acute Priority: High Current Visit: Yes (3) Pneumonia due to COVID-19 virus SNOMED Code(s): 343394471503337955 Code(s): U07.1 - COVID-19; J12.82 - PNEUMONIA DUE TO CORONAVIRUS DISEASE 2019 Status: Acute Current Visit: Yes (4) Electrolyte imbalance SNOMED Code(s): 838656238 Code(s): E87.8 - OTH DISORDERS OF ELECTROLYTE AND FLUID BALANCE, NEC Status: Acute Priority: High Current Visit: Yes (5) Nausea SNOMED Code(s): 380397414 Code(s): R11.0 - NAUSEA Status: Resolved Priority: Medium Current Visit: Yes - Problem List Review Problem List Initiated/Reviewed/Updated: Yes - My Orders Last 24 Hours: My Active Orders 02/04/21 17:58 Sodium Chloride 0.9% [Saline Flush] 10 ml FLUSH Q8HR PRN Peripheral IV Insertion Adult [OM.PC] Stat 02/04/21 17:59 Peripheral IV Care [RC] . DIRECTED 02/04/21 19:15 NS + KCl 20mEq/L [Normal Saline with 20 mEq KCl] 1,000 ml IV ASDIRECTED - Assessment/Plan Admission H&P: Please use this note as an admission H&P Last 24 Hours: My Active Orders 02/04/21 17:58 Sodium Chloride 0.9% [Saline Flush] 10 ml FLUSH Q8HR PRN Peripheral IV Insertion Adult [OM.PC] Stat 02/04/21 17:59 Peripheral IV Care [RC] . DIRECTED 02/04/21 19:15 NS + KCl 20mEq/L [Normal Saline with 20 mEq KCl] 1,000 ml IV ASDIRECTED Plan: Discussed findings with Dr. Mueller agrees observation overnight with IV fluid and repeat lab in a.m. with potential for discharge with electrolyte correction and no worsening of symptoms.
[2021-02-04] MEDS ORDERED: Ondansetron 4 MG/2 ML SDV ONE (18:01)
[2021-02-04] MEDS ORDERED: Sodium Chloride 0.9% 1,000 ML ONE (18:02)
[2021-02-04 18:45] LABS: ANION GAP 15.4 mmol/L (5-15); CHLORIDE,CL 96 mmol/L (98-107); SODIUM,NA 135 mmol/L (136-145)
--- NOTE | 2021-02-04 19:11 | CR ---
[id number] RAD/RAD Chest PA or AP 1V EXAM: SINGLE VIEW CHEST. INDICATION: COVID 19 COMPARISON: CORRELATION IS MADE WITH FEBRUARY 02, 2021 FINDINGS: Extensive bilateral infiltrates are seen The cardiac silhouette is stable IMPRESSION: EXTENSIVE BILATERAL PNEUMONIA Ernesto Berman MD 02/04/21 1910 Thank you for allowing us to participate in the care of your patient.
[2021-02-04] MEDS ORDERED: Acetaminophen 325 MG Tab PO PRN (19:12)
[2021-02-04] MEDS ORDERED: Ondansetron 4 MG/2 ML SDV IV PRN (19:12)
[2021-02-04] MEDS ORDERED: ALPRAZOLAM 1 MG PO PRN (19:15)
[2021-02-04] MEDS: NS + KCl 20mEq/L 1,000 ML IV SCH ×2 (19:20→23:41)
[2021-02-04] MEDS ORDERED: Non-Formulary Medication 1 Each (Escitalopram Oxalate [Lexapro] 20 MG Tablet) PO SCH (21:00)
[2021-02-05] MEDS ORDERED: LOPERAMIDE PO PRN ×2 (00:17→09:03)
[2021-02-05] MEDS ORDERED: SIMETHICONE PO PRN ×2 (00:17→09:03)
[2021-02-05 08:14] LABS: ANION GAP 14.8 mmol/L (5-15); CHLORIDE,CL 101 mmol/L (98-107); SODIUM,NA 139 mmol/L (136-145)
[2021-02-05] MEDS ORDERED: [UNRECOGNIZED DRUG - OTHER] PO PRN (09:03)
--- NOTE | 2021-02-05 09:22 | PCM.PN ---
- General Info Date of Service: 02/05/21 Admission Dx/Problem (Free Text): N/V/D, syncope, dizziness, COVID + - Review of Systems Systems Review Comment:: Kike was admitted through the ER on 02/04/2021 for persistent N/V/D with dizziness and syncope in the setting of COVID positive status, currently on day 11 after positive test at [facility]. He denies SOB but states with any movement his O2 sats were dropping to the upper 80's and so he is currently on 2L via NC and sating 92%. He was in the ER on 02/02 with weakness, diarrhea, N/V and was given IVF's. Vitals all stable at that time and lab unremarkable. He was given IVF's and discharged to home. He reportedly felt better for around 24 hours but his gastrointestinal symptoms persisted. He did start taking Imodium on 02/02 and that helped with his diarrhea. He was noted to be hypokalemic in the ER on 02/04. That was really his only lab abnormality aside from a CRP >11. Lactic acid was normal. He is asking about monoclonal antibody infusion today. He states that he got dizzy this AM when he tried to sit up and eat. He didn't eat much this AM due to nausea and after he did eat he had a loose stool. He reports that he feels marginally better but is still concerned about going home with the dizziness and weakness. - Patient Data Vitals - Most Recent: Last Vital Signs Temp 97.8 F 02/05/21 06:44 Pulse 72 02/05/21 06:44 Resp 20 02/05/21 06:44 BP 130/91 H 02/05/21 06:44 Pulse Ox 92 L 02/05/21 06:44 Weight - Most Recent: 260 lb I&O - Last 24 Hours: Intake & Output 02/04/21 02/05/21 02/05/21 22:59 06:59 14:59 Intake Total 2500 Balance 2500 Lab Results Last 24 Hours: Laboratory Results - last 24 hr 02/04/21 02/04/21 02/04/21 Range/Units 18:13 18:13 18:13 WBC 6.20 (5.00-10.00) 10^3/uL RBC 5.08 (4.50-6.00) 10^6/uL Hgb 15.2 (13.0-17.0) g/dL Hct 42.8 (40.0-52.0) % MCV 84.3 (82.0-92.0) fL MCH 29.9 (27.0-31.0) pg MCHC 35.5 (32.0-36.0) g/dL RDW 11.7 (11.5-14.5) % Plt Count 193 (150-400) 10^3/uL MPV 10.0 (7.4-10.4) fL Immature Gran % (Auto) 0.2 (0.0-5.0) % Neut % (Auto) 70.6 H (50.0-70.0) % Lymph % (Auto) 22.9 (20.0-40.0) % [place] % (Auto) 6.1 (2.0-8.0) % Eos % (Auto) 0.0 L (1.0-3.0) % Baso % (Auto) 0.2 (0.0-1.0) % Neut # (Auto) 4.38 (2.50-7.00) 10^3/uL Lymph # (Auto) 1.42 (1.00-4.00) 10^3/uL [place] # (Auto) 0.38 (0.10-0.80) 10^3/uL Eos # (Auto) 0.00 L (0.10-0.30) 10^3/uL Baso # (Auto) 0.01 (0.00-0.10) 10^3/uL Immature Gran # (Auto) 0.01 (0.00-0.50) 10^3/uL D-Dimer, Quantitative 156 (<400) ng/mL Sodium 135 L (136-145) mmol/L Potassium 3.0 L (3.5-5.1) mmol/L Chloride 96 L (98-107) mmol/L Carbon Dioxide 26.6 (21.0-32.0) mmol/L Anion Gap 15.4 H (5-15) mmol/L BUN 6 L (7-18) mg/dL Creatinine 0.89 (0.51-1.17) mg/dL Est Cr Clr Drug Dosing 108.31 mL/min Estimated GFR (MDRD) > 60 mL/min Glucose 107 (70-140) mg/dL Lactic Acid (0.4-2.0) mmol/L Calcium 8.2 L (8.7-10.3) mg/dL Total Bilirubin 0.6 (0.2-1.0) mg/dL AST 24 (15-37) U/L ALT 30 (14-63) U/L Alkaline Phosphatase 50 (46-116) U/L C-Reactive Protein 11.9 H (0.0-0.9) mg/dL Total Protein 7.4 (6.4-8.2) g/dL Albumin 3.42 (3.40-5.00) g/dL 02/04/21 02/05/21 Range/Units 18:13 07:35 WBC (5.00-10.00) 10^3/uL RBC (4.50-6.00) 10^6/uL Hgb (13.0-17.0) g/dL Hct (40.0-52.0) % MCV (82.0-92.0) fL MCH (27.0-31.0) pg MCHC (32.0-36.0) g/dL RDW (11.5-14.5) % Plt Count (150-400) 10^3/uL MPV (7.4-10.4) fL Immature Gran % (Auto) (0.0-5.0) % Neut % (Auto) (50.0-70.0) % Lymph % (Auto) (20.0-40.0) % [place] % (Auto) (2.0-8.0) % Eos % (Auto) (1.0-3.0) % Baso % (Auto) (0.0-1.0) % Neut # (Auto) (2.50-7.00) 10^3/uL Lymph # (Auto) (1.00-4.00) 10^3/uL [place] # (Auto) (0.10-0.80) 10^3/uL Eos # (Auto) (0.10-0.30) 10^3/uL Baso # (Auto) (0.00-0.10) 10^3/uL Immature Gran # (Auto) (0.00-0.50) 10^3/uL D-Dimer, Quantitative (<400) ng/mL Sodium 139 (136-145) mmol/L Potassium 3.5 (3.5-5.1) mmol/L Chloride 101 (98-107) mmol/L Carbon Dioxide 26.7 (21.0-32.0) mmol/L Anion Gap 14.8 (5-15) mmol/L BUN 6 L (7-18) mg/dL Creatinine 0.72 (0.51-1.17) mg/dL Est Cr Clr Drug Dosing 133.88 mL/min Estimated GFR (MDRD) > 60 mL/min Glucose 95 (70-140) mg/dL Lactic Acid 1.2 (0.4-2.0) mmol/L Calcium 8.0 L (8.7-10.3) mg/dL Total Bilirubin (0.2-1.0) mg/dL AST (15-37) U/L ALT (14-63) U/L Alkaline Phosphatase (46-116) U/L C-Reactive Protein (0.0-0.9) mg/dL Total Protein (6.4-8.2) g/dL Albumin (3.40-5.00) g/dL Med Orders - Current: Current Medications Acetaminophen (Acetaminophen 325 Mg Tab) 650 mg PO Q4H PRN PRN Reason: Pain (Mild 1-3)/fever Diphenoxylate HCl/Atropine (Atropine/Diphenoxylate 0.025-2.5 Mg Tab) 1 tab PO Q6H PRN PRN Reason: Diarrhea Potassium Chloride/Sodium Chloride (Normal Saline With 20 Meq Kcl) 1,000 mls @ 200 mls/hr IV ASDIRECTED [facility] Stop: 02/06/21 00:14 Last Admin: 02/04/21 23:41 Dose: 200 mls/hr Documented by: Potassium Chloride/Sodium Chloride (Normal Saline With 20 Meq Kcl) 1,000 mls @ 125 mls/hr IV ASDIRECTED [facility] Non-Formulary Medication (Alprazolam [Alprazolam]) 1 mg PO DAILY PRN PRN Reason: Anxiety Ondansetron HCl (Ondansetron 4 Mg/2 Ml Sdv) 8 mg IV Q6H PRN PRN Reason: Nausea/Vomiting Ptom- Escitalopram (20 Mg Tablet) 1 each PO BEDTIME MARIAMA Ptom- Immodium Ad (Tablet) 2 each PO ASDIRECTED PRN PRN Reason: Diarrhea Sodium Chloride (Sodium Chloride 0.9% 10 Ml Syringe) 10 ml FLUSH Q8HR PRN PRN Reason: keep vein open Discontinued Medications Sodium Chloride (Normal Saline) 1,000 mls @ 999 mls/hr IV .BOLUS ONE Stop: 02/04/21 18:59 Last Admin: 02/04/21 18:05 Dose: 999 mls/hr Documented by: Sodium Chloride (Normal Saline) Confirm Administered Dose 1,000 mls @ as directed .ROUTE .STK-MED ONE Stop: 02/04/21 18:03 Last Admin: 02/04/21 18:22 Dose: Not Given Documented by: Non-Formulary Medication (Escitalopram Oxalate [Lexapro]) 20 mg PO BEDTIME MARIAMA Last Admin: 02/04/21 22:00 Dose: 20 mg Documented by: Imodium Multi- Symptom Relief 2- 125mg Caplet 2 each PO ASDIRECTED PRN PRN Reason: Diarrhea Last Admin: 02/05/21 00:00 Dose: 2 each Documented by: Ondansetron HCl (Ondansetron 4 Mg/2 Ml Sdv) 8 mg IVPUSH ONETIME ONE Stop: 02/04/21 18:01 Last Admin: 02/04/21 18:07 Dose: 8 mg Documented by: Ondansetron HCl (Ondansetron 4 Mg/2 Ml Sdv) Confirm Administered Dose 8 mg .ROUTE .STK-MED ONE Stop: 02/04/21 18:02 Last Admin: 02/04/21 18:23 Dose: Not Given Documented by: - Exam General: Alert, Oriented, Cooperative, No Acute Distress Lungs: Clear to Auscultation, Normal Respiratory Effort Cardiovascular: Regular Rate, Regular Rhythm, No Murmurs GI/Abdominal Exam: Normal Bowel Sounds - Patient Data Lab Results Last 24 hrs: Laboratory Results - last 24 hr 02/04/21 02/04/21 02/04/21 Range/Units 18:13 18:13 18:13 WBC 6.20 (5.00-10.00) 10^3/uL RBC 5.08 (4.50-6.00) 10^6/uL Hgb 15.2 (13.0-17.0) g/dL Hct 42.8 (40.0-52.0) % MCV 84.3 (82.0-92.0) fL MCH 29.9 (27.0-31.0) pg MCHC 35.5 (32.0-36.0) g/dL RDW 11.7 (11.5-14.5) % Plt Count 193 (150-400) 10^3/uL MPV 10.0 (7.4-10.4) fL Immature Gran % (Auto) 0.2 (0.0-5.0) % Neut % (Auto) 70.6 H (50.0-70.0) % Lymph % (Auto) 22.9 (20.0-40.0) % [place] % (Auto) 6.1 (2.0-8.0) % Eos % (Auto) 0.0 L (1.0-3.0) % Baso % (Auto) 0.2 (0.0-1.0) % Neut # (Auto) 4.38 (2.50-7.00) 10^3/uL Lymph # (Auto) 1.42 (1.00-4.00) 10^3/uL [place] # (Auto) 0.38 (0.10-0.80) 10^3/uL Eos # (Auto) 0.00 L (0.10-0.30) 10^3/uL Baso # (Auto) 0.01 (0.00-0.10) 10^3/uL Immature Gran # (Auto) 0.01 (0.00-0.50) 10^3/uL D-Dimer, Quantitative 156 (<400) ng/mL Sodium 135 L (136-145) mmol/L Potassium 3.0 L (3.5-5.1) mmol/L Chloride 96 L (98-107) mmol/L Carbon Dioxide 26.6 (21.0-32.0) mmol/L Anion Gap 15.4 H (5-15) mmol/L BUN 6 L (7-18) mg/dL Creatinine 0.89 (0.51-1.17) mg/dL Est Cr Clr Drug Dosing 108.31 mL/min Estimated GFR (MDRD) > 60 mL/min Glucose 107 (70-140) mg/dL Lactic Acid (0.4-2.0) mmol/L Calcium 8.2 L (8.7-10.3) mg/dL Total Bilirubin 0.6 (0.2-1.0) mg/dL AST 24 (15-37) U/L ALT 30 (14-63) U/L Alkaline Phosphatase 50 (46-116) U/L C-Reactive Protein 11.9 H (0.0-0.9) mg/dL Total Protein 7.4 (6.4-8.2) g/dL Albumin 3.42 (3.40-5.00) g/dL 02/04/21 02/05/21 Range/Units 18:13 07:35 WBC (5.00-10.00) 10^3/uL RBC (4.50-6.00) 10^6/uL Hgb (13.0-17.0) g/dL Hct (40.0-52.0) % MCV (82.0-92.0) fL MCH (27.0-31.0) pg MCHC (32.0-36.0) g/dL RDW (11.5-14.5) % Plt Count (150-400) 10^3/uL MPV (7.4-10.4) fL Immature Gran % (Auto) (0.0-5.0) % Neut % (Auto) (50.0-70.0) % Lymph % (Auto) (20.0-40.0) % [place] % (Auto) (2.0-8.0) % Eos % (Auto) (1.0-3.0) % Baso % (Auto) (0.0-1.0) % Neut # (Auto) (2.50-7.00) 10^3/uL Lymph # (Auto) (1.00-4.00) 10^3/uL [place] # (Auto) (0.10-0.80) 10^3/uL Eos # (Auto) (0.10-0.30) 10^3/uL Baso # (Auto) (0.00-0.10) 10^3/uL Immature Gran # (Auto) (0.00-0.50) 10^3/uL D-Dimer, Quantitative (<400) ng/mL Sodium 139 (136-145) mmol/L Potassium 3.5 (3.5-5.1) mmol/L Chloride 101 (98-107) mmol/L Carbon Dioxide 26.7 (21.0-32.0) mmol/L Anion Gap 14.8 (5-15) mmol/L BUN 6 L (7-18) mg/dL Creatinine 0.72 (0.51-1.17) mg/dL Est Cr Clr Drug Dosing 133.88 mL/min Estimated GFR (MDRD) > 60 mL/min Glucose 95 (70-140) mg/dL Lactic Acid 1.2 (0.4-2.0) mmol/L Calcium 8.0 L (8.7-10.3) mg/dL Total Bilirubin (0.2-1.0) mg/dL AST (15-37) U/L ALT (14-63) U/L Alkaline Phosphatase (46-116) U/L C-Reactive Protein (0.0-0.9) mg/dL Total Protein (6.4-8.2) g/dL Albumin (3.40-5.00) g/dL Result Diagrams: 02/04/21 18:13 02/05/21 07:35 Sepsis Event Note - Evaluation Sepsis Screening Result: No Definite Risk - Focused Exam Vital Signs: Vital Signs Temp Pulse Resp BP Pulse Ox 02/05/21 06:44 97.8 F 72 20 130/91 H 92 L 02/05/21 03:00 98.8 F 80 20 109/72 93 L - Problem List Review Problem List Initiated/Reviewed/Updated: Yes - My Orders Last 24 Hours: My Active Orders 02/05/21 09:17 Atropine/Diphenoxylate [Lomotil 0.025-2.5 MG] 1 tab PO Q6H PRN 02/05/21 09:30 Sodium Chloride 0.9% with KCl 20 mEq @ 125 mL/Hr (1000 mL) NS + KCl 20mEq/L [Normal Saline with 20 mEq KCl] 1,000 ml IV ASDIRECTED - Assessment Assessment:: Admission Diagnoses: N/V/D - Home Imodium PRN - Lomotil if Imodium does not work - IVF's NS with 20 mEq KCl at 125 mL per hour. - Regular diet as tolerated Weakness Dizziness COVID + - He is outside of the 10 day window for monoclonal AB therapy, also he is hospitalized and so does not meet criteria - Unlikely Remdesivir would be of any benefit to him at this time so will hold off on that - Work note provided through 02/10 Secondary Diagnoses: Anxiety - Alprazolam 1 mg PO daily PRN - Escitalopram 20 mg PO daily CODE STATUS: Full Code DVT Prophylaxis: Ambulatory Anticipate discharge in AM on 02/06/2021
[2021-02-05] MEDS ORDERED: ALPRAZOLAM 1 MG PO PRN (09:30)
[2021-02-05] MEDS ORDERED: NS + KCl 20mEq/L 1,000 ML IV SCH (09:30)
[2021-02-05] MEDS: Atropine/Diphenoxylate 0.025-2.5 MG Tab PO PRN ×2 (09:42→20:16)
[2021-02-05] MEDS: NS + KCl 20mEq/L 1,000 ML IV SCH (20:19)
[2021-02-05] MEDS ORDERED: ESCITALOPRAM 20 MG PO SCH (21:00)
[2021-02-06] MEDS: NS + KCl 20mEq/L 1,000 ML IV SCH (04:13)
[2021-02-06 06:05] VITALS: BP 134/94; PULSE 69
[2021-02-06 07:53] LABS: ANION GAP 15.4 mmol/L (5-15); CHLORIDE,CL 103 mmol/L (98-107); SODIUM,NA 140 mmol/L (136-145)
--- NOTE | 2021-02-06 09:58 | PCM.DCSUM1 ---
Discharge Summary - Hospital Course Diagnosis: Stroke: No - Discharge Data Discharge Date: 02/06/21 Discharge Disposition: Home, Self-Care 01 Condition: Good - Referral to Home Health Primary Care Physician: Radha Montez MD - Patient Instructions Diet: Usual Diet as Tolerated, Drink 8-10+ Glasses/Day Activity: Cough & Deep Breathe Driving: May Drive Today Showering/Bathing: May Shower Notify Provider of: Fever, Nausea and/or Vomiting (Report shortness of breath, fevers, or green, nicole or bloody mucous. Report any ongoing diarrhea. ) Other/Special Instructions: Return to Work WED night. Note sent to [facility]. Use your breathing device as taught. Home Imodium for any diarrhea. You still may experience some shortness of breath, fatigue, chest pain, and cough for awhile since you have Covid Infection, every patient is different and their is a wide variability in time to symptom resolution. - Discharge Plan *PRESCRIPTION DRUG MONITORING PROGRAM REVIEWED*: Not Applicable *COPY OF PRESCRIPTION DRUG MONITORING REPORT IN PATIENT YESICA: Not Applicable Home Medications: Home Meds ALPRAZolam [Alprazolam] 1 mg PO DAILY PRN 02/02/21 [History] Escitalopram Oxalate [Lexapro] 20 mg PO BEDTIME 02/02/21 [History] Patient's Own Medication [Ptom] 2 each PO ASDIRECTED PRN each 02/06/21 [Rx] Referrals: Radha Montez MD [Primary Care Provider] - (F/U with either Kike or Dr Cano on ZOOM next week IF symptoms persist. ) - Discharge Summary/Plan Comment DC Time >30 min.: Yes (45minutes) Total # of Minutes for Discharge Time: 45 Discharge Summary/Plan Comment: Final diagnosis COVID + Weakness Dizziness History summary Kike was admitted through the ER on 02/04/2021 for persistent N/V/D with dizziness and syncope in the setting of COVID positive status, currently on day [address] test [address] [facility]. He denies SOB but states with any movement his O2 sats were dropping to the upper 80's and so he is currently on 2L via NC and sating 92%. He was in the ER on 02/02 with weakness, diarrhea, N/V and was given IVF's. Vitals all stable at that time and lab unremarkable. He was given IVF's and discharged to home. He reportedly felt better for around 24 hours but his gastrointestinal symptoms persisted. He did start taking Imodium on 02/02 and that helped with his diarrhea. He was noted to be hypokalemic in the ER on 02/04. That was really his only lab abnormality aside from a CRP >11. Lactic acid was normal. He is asking about monoclonal antibody infusion today. He states that he got dizzy this AM when he tried to sit up and eat. He didn't eat much this AM due to nausea and after he did eat he had a loose stool. He reports that he feels marginally better but is still concerned about going home with the dizziness and weakness. Hospital course Went fairly well, he did have to have potassium replaced through the IV fluids. Upon discharge he was normalized. He tolerated it well without occasions. He remained on telemetry, reviewed strips, no complications. He remained on oxygen however at rest he was approximately 92 to 95%. T-max 99.2 early on admission. No night sweats. He used Incentive spirometer with greater than 3000 mL Medication changes/adjustments upon discharge None, continue home medications, patient is refusing antiemetics upon discharge Home discharge instructions Return to Work WED night. Note sent to [employer]. Use your breathing device as taught. Home Imodium for any diarrhea. You still may experience some shortness of breath, fatigue, chest pain, and cough for awhile since you have Covid Infection, every patient is different and their is a wide variability in time to symptom resolution. Zoom follow up next week. - General Info Functional Status: Reports: Pain Controlled, Tolerating Diet - Review of Systems General: Denies: Fever, Weakness HEENT: Reports: No Symptoms Pulmonary: Reports: No Symptoms Cardiovascular: Reports: No Symptoms Gastrointestinal: Denies: Diarrhea, Nausea, Vomiting Genitourinary: Reports: No Symptoms Musculoskeletal: Reports: No Symptoms Skin: Reports: No Symptoms Neurological: Reports: No Symptoms Psychiatric: Reports: No Symptoms - Patient Data Vitals - Most Recent: Last Vital Signs Temp 98.1 F 02/06/21 06:04 Pulse 69 02/06/21 06:04 Resp 16 02/06/21 06:04 BP 134/94 H 02/06/21 06:04 Pulse Ox 93 L 02/06/21 06:04 Weight - Most Recent: 260 lb I&O - Last 24 hours: Intake & Output 02/05/21 02/06/21 02/06/21 22:59 06:59 14:59 Intake Total 300 1249 Balance 300 1249 Lab Results - Last 24 hrs: Laboratory Results - last 24 hr 02/06/21 02/06/21 Range/Units 07:36 07:36 WBC 4.93 L (5.00-10.00) 10^3/uL RBC 4.68 (4.50-6.00) 10^6/uL Hgb 13.9 (13.0-17.0) g/dL Hct 40.9 (40.0-52.0) % MCV 87.4 D (82.0-92.0) fL MCH 29.7 (27.0-31.0) pg MCHC 34.0 (32.0-36.0) g/dL RDW 12.1 (11.5-14.5) % Plt Count 265 (150-400) 10^3/uL MPV 9.8 (7.4-10.4) fL Immature Gran % (Auto) 0.0 (0.0-5.0) % Neut % (Auto) 48.0 L (50.0-70.0) % Lymph % (Auto) 39.6 (20.0-40.0) % [place] % (Auto) 11.2 H (2.0-8.0) % Eos % (Auto) 0.8 L (1.0-3.0) % Baso % (Auto) 0.4 (0.0-1.0) % Neut # (Auto) 2.37 L (2.50-7.00) 10^3/uL Lymph # (Auto) 1.95 (1.00-4.00) 10^3/uL [place] # (Auto) 0.55 (0.10-0.80) 10^3/uL Eos # (Auto) 0.04 L (0.10-0.30) 10^3/uL Baso # (Auto) 0.02 (0.00-0.10) 10^3/uL Immature Gran # (Auto) 0.00 (0.00-0.50) 10^3/uL Sodium 140 (136-145) mmol/L Potassium 3.8 (3.5-5.1) mmol/L Chloride 103 (98-107) mmol/L Carbon Dioxide 25.4 (21.0-32.0) mmol/L Anion Gap 15.4 H (5-15) mmol/L BUN 8 (7-18) mg/dL Creatinine 0.63 (0.51-1.17) mg/dL Est Cr Clr Drug Dosing 153.01 mL/min Estimated GFR (MDRD) > 60 mL/min Glucose 99 (70-140) mg/dL Calcium 8.1 L (8.7-10.3) mg/dL Med Orders - Current: Current Medications Acetaminophen (Acetaminophen 325 Mg Tab) 650 mg PO Q4H PRN PRN Reason: Pain (Mild 1-3)/fever Diphenoxylate HCl/Atropine (Atropine/Diphenoxylate 0.025-2.5 Mg Tab) 1 tab PO Q6H PRN PRN Reason: Diarrhea Last Admin: 02/05/21 20:16 Dose: 1 tab Documented by: Potassium Chloride/Sodium Chloride (Normal Saline With 20 Meq Kcl) 1,000 mls @ 125 mls/hr IV ASDIRECTED [facility] Last Admin: 02/06/21 04:13 Dose: 125 mls/hr Documented by: Ondansetron HCl (Ondansetron 4 Mg/2 Ml Sdv) 8 mg IV Q6H PRN PRN Reason: Nausea/Vomiting Ptom- Escitalopram (20 Mg Tablet) 1 each PO BEDTIME [facility] Last Admin: 02/05/21 20:16 Dose: 1 each Documented by: Ptom- Imodium Multi Symptom Tab ( Loperamide 2mg/Simethicone 125mg) 2 each PO ASDIRECTED PRN PRN Reason: Diarrhea Ptom- Alprazolam 1 (Mg Tablet) 1 each PO DAILY PRN PRN Reason: Anxiety Sodium Chloride (Sodium Chloride 0.9% 10 Ml Syringe) 10 ml FLUSH Q8HR PRN PRN Reason: keep vein open Discontinued Medications Sodium Chloride (Normal Saline) 1,000 mls @ 999 mls/hr IV .BOLUS ONE Stop: 02/04/21 18:59 Last Admin: 02/04/21 18:05 Dose: 999 mls/hr Documented by: Sodium Chloride (Normal Saline) Confirm Administered Dose 1,000 mls @ as directed .ROUTE .STK-MED ONE Stop: 02/04/21 18:03 Last Admin: 02/04/21 18:22 Dose: Not Given Documented by: Potassium Chloride/Sodium Chloride (Normal Saline With 20 Meq Kcl) 1,000 mls @ 200 mls/hr IV ASDIRECTED [facility] Stop: 02/06/21 00:14 Last Admin: 02/04/21 23:41 Dose: 200 mls/hr Documented by: Potassium Chloride/Sodium Chloride (Normal Saline With 20 Meq Kcl) 1,000 mls @ 125 mls/hr IV ASDIRECTED [facility] Non-Formulary Medication (Escitalopram Oxalate [Lexapro]) 20 mg PO BEDTIME [facility] Last Admin: 02/04/21 22:00 Dose: 20 mg Documented by: Non-Formulary Medication (Alprazolam [Alprazolam]) 1 mg PO DAILY PRN PRN Reason: Anxiety Imodium Multi- Symptom Relief 2- 125mg Caplet 2 each PO ASDIRECTED PRN PRN Reason: Diarrhea Last Admin: 02/05/21 00:00 Dose: 2 each Documented by: Ondansetron HCl (Ondansetron 4 Mg/2 Ml Sdv) 8 mg IVPUSH ONETIME ONE Stop: 02/04/21 18:01 Last Admin: 02/04/21 18:07 Dose: 8 mg Documented by: Ondansetron HCl (Ondansetron 4 Mg/2 Ml Sdv) Confirm Administered Dose 8 mg .ROUTE .STK-MED ONE Stop: 02/04/21 18:02 Last Admin: 02/04/21 18:23 Dose: Not Given Documented by: - Exam Quality Assessment: Reports: Supplemental Oxygen. Denies: DVT Prophylaxis General: Reports: Alert, Oriented Lungs: Reports: Clear to Auscultation, Normal Respiratory Effort Cardiovascular: Reports: Regular Rate, Regular Rhythm Back Exam: Denies: CVA Tenderness (R) Skin: Reports: Warm, Dry, Intact Psy/Mental Status: Reports: Alert, Normal Affect, Normal Mood
== END 2021-02-06 11:05 | disposition home or self-care (01) ==
LOC: KA.ED 17:54 → KA.MS 19:10
PROVIDERS: ADMIT Internal Medicine; ATTEND Internal Medicine
DX: U07.1 COVID-19 (principal); J12.82 Pneumonia due to coronavirus disease 2019; R55 Syncope and collapse; E87.8 Other disorders of electrolyte and fluid balance, not elsewhere classified; Z79.899 Other long term (current) drug therapy; F41.9 Anxiety disorder, unspecified; F32.A Depression, unspecified
CPT/HCPCS: 36415; 71045; 80048; 80053; 83605; 85025; 85379; 86140; 96365; 96366; 96375; 99220; 99285-25; A9270-GY; G0378; J2405; J3480; J7030